=== PATIENT | male | born 1990 | race Caucasian/White ===

== ENCOUNTER 2017-12-18 17:53 | Emergency (ER) | payer BC, OTHER ==
[2017-12-18 18:04] VITALS: BP 116/60; PULSE 69; TEMP 98; BMI 45.3
--- NOTE | 2017-12-18 18:22 | PDOC ---
Attending Attestation - HPI HPI: 12/18/17 19:23 The patient is a 27 yo M with no significant past medical history, who presents with acute onset of RLQ pain that radiates towards his right flank and down his right leg. She reports standing up after moving his bowels when he first noticed the pain. He reports the pain has subsided mildly since being in the ED. The patient denies chest pain, shortness of breath, headache and dizziness. The patient denies fever, chills, nausea, vomit, diarrhea and constipation. The patient denies dysuria, frequency, urgency and hematuria. Allergies: amoxicillin - Physicial Exam PE: 12/18/17 19:26 GENERAL: Well developed, well nourished. Awake and alert. No acute distress. HEENT: Normocephalic, atraumatic. PERRLA, EOMI. No conjunctival pallor. Sclera are non- icteric. Moist mucous membranes. Oropharynx is clear. NECK: Supple. Full ROM. No JVD. Carotid pulses 2+ and symmetric, without bruits. No thyromegaly. No lymphadenopathy. CARDIOVASCULAR: Regular rate and rhythm. No murmurs, rubs, or gallops. Distal pulses are 2+ and symmetric. PULMONARY: No evidence of respiratory distress. Lungs clear to auscultation bilaterally. No wheezing, rales or rhonchi. ABDOMINAL: Soft. Non-tender. Non-distended. No rebound or guarding. No organomegaly. Normoactive bowel sounds. MUSCULOSKELETAL Normal range of motion at all joints. No bony deformities or tenderness. No CVA tenderness. EXTREMITIES: No cyanosis. No clubbing. No edema. No calf tenderness. SKIN: Warm and dry. Normal capillary refill. No rashes. No jaundice. NEUROLOGICAL: Alert, awake, appropriate. Cranial nerves 2-12 intact. Normoreflexic in the upper and lower extremities. Normal speech. Toes are down-going bilaterally. Gait is normal without ataxia. PSYCHIATRIC: Cooperative. Good eye contact. Appropriate mood and affect. - Medical Decision Making 12/18/17 19:26 Documentation prepared by Tiffany Higgins, acting as medical advisor for Milvia Payton MD <Tiffany Higgins - Last Filed: 12/18/17 19:23> - Resident Resident Name: Amos Devi - ED Attending Attestation I have performed the following: I have examined & evaluated the patient, The case was reviewed & discussed with the resident, I agree w/resident's findings & plan, Exceptions are as noted - HPI HPI: 12/18/17 18:21 27 YO MALE EXPERIENCED SUDDEN SEVERE FLANK PAIN s/p using the bathroom - Medical Decision Making 12/18/17 19:47 UA is negative for infection ct scan abd /pel_ no evidence for appendicitis ,no hydronephrosis.no sbo,no masses imp possible kidney stone passage,muscle strain <Milvia Payton - Last Filed: 12/18/17 19:55>
--- NOTE | 2017-12-18 18:31 | PDOC ---
History of Present Illness - General Chief Complaint: Pain, Acute Stated Complaint: ABDOMINAL PAIN Time Seen by Provider: 12/18/17 18:12 - History of Present Illness Initial Comments: The patient is a 27M with no reported PMH who presents with acute onset, sharp, RLQ pain that radiates towards his back and down his leg. She states he was standing up s/p a BM when the pain began. Since that time it has subsided slightly. He denies ever having had this pain before. He denies any associated symptoms including fevers, N/V/D/C, dysuria, or blood in his stool. Denies history of kidney stones and has been voiding normally. 12/18/17 18:24 Past History - Past Medical History Allergies/Adverse Reactions: Allergies Allergy/AdvReac Type Severity Reaction Status Date / Time amoxicillin Allergy Verified 12/18/17 18:02 Home Medications: Ambulatory Orders NK [No Known Home Medication] 12/18/17 - Suicide/Smoking/Psychosocial Hx Smoking History: Never smoked Hx Alcohol Use: No Drug/Substance Use Hx: No Review of Systems - Review of Systems Comments:: GENERAL/CONSTITUTIONAL: No fever or chills. No weakness. HEAD, EYES, EARS, NOSE AND THROAT: No change in vision. No ear pain or discharge. No sore throat. CARDIOVASCULAR: No chest pain or shortness of breath RESPIRATORY: No cough, wheezing, or hemoptysis. GASTROINTESTINAL: per HPI GENITOURINARY: No dysuria, frequency, or change in urination. MUSCULOSKELETAL: No joint or muscle swelling or pain. No neck or back pain. SKIN: No rash NEUROLOGIC: No headache, vertigo, loss of consciousness, or change in strength/ sensation. ENDOCRINE: No increased thirst. No abnormal weight change HEMATOLOGIC/LYMPHATIC: No anemia, easy bleeding, or history of blood clots. ALLERGIC/IMMUNOLOGIC: No hives or skin allergy. 12/18/17 18:31 *Physical Exam - Vital Signs Last Vital Signs Temp Pulse Resp BP Pulse Ox 98.0 F 69 18 116/60 100 12/18/17 18:02 12/18/17 18:02 12/18/17 18:02 12/18/17 18:02 12/18/17 18:02 - Physical Exam Comments: GENERAL: Awake, alert, and fully oriented, in no acute distress HEAD: No signs of trauma, normocephalic, atraumatic EYES: PERRLA, EOMI, sclera anicteric, conjunctiva clear ENT: Auricles normal inspection, hearing grossly normal, nares patent, oropharynx clear without exudates. Moist mucosa NECK: Normal ROM, supple, no lymphadenopathy LUNGS: No distress, speaks full sentences, clear to auscultation bilaterally HEART: Regular rate and rhythm, peripheral pulses normal and equal bilaterally ABDOMEN: Soft, non-distended, RLQ TTP, normoactive bowel sounds. No guarding, no rebound EXTREMITIES : Normal inspection, Normal range of motion, no edema. No clubbing or cyanosis NEUROLOGICAL: Cranial nerves II through XII grossly intact. Normal speech, normal gait, no focal sensorimotor deficits SKIN: Warm, Dry, no rashes or lesions noted 12/18/17 18:32 ED Treatment Course - LABORATORY CBC & Chemistry Diagram: 12/18/17 18:20 12/18/17 18:20 - RADIOLOGY Radiology Studies Ordered: Category Date Time Status SPIRAL- RENAL-STONE CT [CT] Stat CT Scan 12/18/17 18:16 Ordered Medical Decision Making - Medical Decision Making The patient is a 27M with no reported PMH who presents with acute onset RLQ pain radiating to his back and leg s/p BM. Ddx: Nephrolithiasis, Appendicitis, MSK, hernia, less likely colitis; considered but not likely bowel obstruction, infection ED Course CBC, BMP, CT spiral 12/18/17 18:34 No electrolyte abnormalities, CBC without signs of inflammation or infection Patient reports pain is still present but improved and does not want pain medication at this time. 12/18/17 19:10 *DC/Admit/Observation/Transfer Diagnosis at time of Disposition: Abdominal pain Qualifiers: Abdominal location: right lower quadrant Qualified Code(s): R10.31 - Right lower quadrant pain - Discharge Dispostion Disposition: HOME Condition at time of disposition: Improved Decision to Admit order: No - Referrals - Patient Instructions Printed Discharge Instructions: DI for Acute Abdomen, DI for Abdominal Muscle Strain Additional Instructions: You were seen in the Emergency Department today for acute abdominal pain. Your CT scan was negative for kidney stone or appendicitis. Your blood work was negative for electrolyte abnormality or signs of infection. Please review the handouts provided at discharge and follow up with your primary care physician in 1-3 days. Return to the Emergency Department if you begin to experience fevers/chills, N/V, worsening symptoms, or any new concerning symptoms. - Post Discharge Activity Forms/Work/School Notes: Back to Work
[2017-12-18 18:32] LABS: HEMATOCRIT 41.3 % (35.4-49); HEMOGLOBIN 14.2 GM/dL (11.7-16.9); MCH 29.5 pg (25.7-33.7); MCHC 34.4 g/dl (32.0-35.9); MEAN CELL VOLUME 85.7 fl (80-96); MEAN PLT VOLUME 7.9 fl (7.5-11.1); PLATELET COUNT 244 K/MM3 (134-434); RBC 4.82 M/mm3 (4.00-5.60); RDW 14.2 % (11.9-15.9); WHITE BLOOD COUNT 6.3 K/mm3 (4.0-10.0)
[2017-12-18 18:56] LABS: ANION GAP 7 (8-16); BLOOD UREA NITROGEN 24 mg/dL (7-18); CALCIUM 9.3 mg/dL (8.5-10.1); CHLORIDE 106 mmol/L (98-107); CO2 29 mmol/L (21-32); CREATININE 1.1 mg/dL (0.7-1.3); GLUCOSE,RANDOM 86 mg/dL (74-106); POTASSIUM 4.1 mmol/L (3.5-5.1); SODIUM 142 mmol/L (136-145)
[2017-12-18 19:24] LABS: URINE APPEARANCE CLEAR; URINE BILIRUBIN NEGATIVE (<2.0 mg/dL); URINE COLOR COLORLESS; URINE GLUCOSE (UA) NEGATIVE (NEGATIVE); URINE KETONE NEGATIVE (NEGATIVE); URINE LEUK ESTERASE NEGATIVE (NEGATIVE); URINE NITRITE NEGATIVE (NEGATIVE); URINE PROTEIN NEGATIVE (NEGATIVE); URINE UROBILINOGEN NEGATIVE mg/dL (0.2-1.0)
== END 2017-12-18 19:56 | disposition home or self-care (01) ==
LOC: JER 17:53
DX: R10.31 Right lower quadrant pain (principal)
CPT/HCPCS: 36415; 74176; 80048; 81003; 85027; 99282-25

== ENCOUNTER 2024-03-31 18:39 | Emergency (ER) | payer OTHER ==
[2024-03-31 18:52] VITALS: BP 121/87; PULSE 83; RESP 18; TEMP 98.4; BMI 23.1
[2024-03-31] MEDS ORDERED: IBUPROFEN 600 MG TABLET (FP) PO ONE (19:37)
[2024-03-31] MEDS: IBUPROFEN 600 MG TABLET (FP) PO ONE (19:53)
== END 2024-03-31 20:18 | disposition home or self-care (01) ==
LOC: JER 18:39 → JERFT 18:39
DX: M79.662 Pain in left lower leg (principal); X50.1XXA Overexertion from prolonged static or awkward postures, initial encounter
CPT/HCPCS: 73590-TC-LT-FY; 99283-25